=== PATIENT | male | born 1990 | race Caucasian/White ===

== ENCOUNTER 2018-11-08 18:42 | Emergency (ER) | payer BC ==
--- NOTE | 2018-11-08 18:54 | EDM.PDOC ---
ED HPI GENERAL MEDICAL PROBLEM - General Chief Complaint: Genitourinary Problem Stated Complaint: LOWER ABD AND BACK PAIN Time Seen by Provider: 11/08/18 18:54 Source of Information: Reports: Patient History Limitations: Reports: No Limitations - History of Present Illness INITIAL COMMENTS - FREE TEXT/NARRATIVE: HISTORY AND PHYSICAL: History of present illness: Patient is a 27-year-old male presents to the ED with complaint of dysuria. He states it started 1 week ago after he had intercourse. He went to walk in clinic and was tested for STDs, he was called with the results 2 days later and states it was negative. He reports since then he is having pain in his lower abdomen and feeling nausea. He reports have 1 episode of vomiting. Denies fevers or chills. He states he has a warm sensation in to his left testicle but is not painful or swollen. Review of systems: As per history of present illness and below otherwise all systems reviewed and negative. Past medical history: As per history of present illness and as reviewed below otherwise noncontributory. Surgical history: As per history of present illness and as reviewed below otherwise noncontributory. Social history: No reported history of drug or alcohol abuse. Family history: As per history of present illness and as reviewed below otherwise noncontributory. Physical exam: General: Patient sitting comfortably in no acute distress and nontoxic appearing HEENT: Atraumatic, normocephalic, pupils reactive, negative for conjunctival pallor or scleral icterus, mucous membranes moist, throat clear, neck supple, nontender, trachea midline. No meningeal signs. Lungs: Clear to auscultation, breath sounds equal bilaterally, chest nontender. Heart: S1S2, regular, negative for clicks, rubs, or overt murmur. Abdomen: Soft, nondistended, nontender. Negative for masses or hepatosplenomegaly. Negative for costovertebral tenderness. No rigidity, rebound , guarding. Pelvis: Stable nontender. Genitourinary: No testicular swelling or tenderness to palpation. No penile lesions or drainage. Normal cremasteric reflex Rectal: Deferred. Extremities: Atraumatic, negative for cords or calf pain. Neurovascular unremarkable. Neuro: Awake, alert, oriented. Cranial nerves II through XII unremarkable. Cerebellum unremarkable. Motor and sensory unremarkable throughout. Exam nonfocal. Notes: Diagnostics: CBC, CMP, UA, urine gonorrhea/chlamydia Therapeutics: 250mg Rocephin IM Azithromycin 1g PO Prescriptions: Impression: Concern for STD, dysuria Plan: Infection precautions as discussed Follow up with urology if symptoms not improved as discussed Return to ED As needed as discussed Definitive disposition and diagnosis as appropriate pending reevaluation and review of above. left testicle Pain Score (Numeric/FACES): 8 - Related Data Allergies Allergy/AdvReac Type Severity Reaction Status Date / Time No Known Allergies Allergy Verified 11/08/18 18:51 Home Meds: Home Meds LORazepam 0.5 mg PO DAILY PRN 11/08/18 [History] Past Medical History HEENT History: Reports: None Cardiovascular History: Reports: None Gastrointestinal History: Reports: None - Past Surgical History Endocrine Surgical History: Reports: Other (See Below) Musculoskeletal Surgical History: Reports: Other (See Below) Social & Family History - Family History GI: Reports: None ED ROS GENERAL - Review of Systems Review Of Systems: ROS reveals no pertinent complaints other than HPI. ED EXAM, RENAL/ - Physical Exam Exam: See Below (see dictation.) Course - Vital Signs Last Recorded V/S: Last Vital Signs Temp 97.5 F 11/08/18 18:46 Pulse 69 11/08/18 18:46 Resp 17 11/08/18 18:46 BP 130/76 11/08/18 18:46 Pulse Ox 98 11/08/18 18:46 - Orders/Labs/Meds Orders: Active Orders 24 hr Category Date Time Status CHLAMYDIA AND GONORRHEA BY TMA Stat Lab 11/08/18 18:56 Received Labs: Laboratory Tests 11/08/18 11/08/18 11/08/18 Range/Units 18:56 19:50 19:50 WBC 6.46 (4.0-11.0) K/uL RBC 5.21 (4.50-5.90) M/uL Hgb 14.2 (13.0-17.0) g/dL Hct 43.0 (38.0-50.0) % MCV 82.5 (80.0-98.0) fL MCH 27.3 (27.0-32.0) pg MCHC 33.0 (31.0-37.0) g/dL RDW Std Deviation 40.7 (28.0-62.0) fl RDW Coeff of Kecia 13 (11.0-15.0) % Plt Count 177 (150-400) K/uL MPV 9.10 (7.40-12.00) fL Neut % (Auto) 55.6 (48.0-80.0) % Lymph % (Auto) 26.9 (16.0-40.0) % [place] % (Auto) 8.7 (0.0-15.0) % Eos % (Auto) 8.5 H (0.0-7.0) % Baso % (Auto) 0.3 (0.0-1.5) % Neut # (Auto) 3.6 (1.4-5.7) K/uL Lymph # (Auto) 1.7 (0.6-2.4) K/uL [place] # (Auto) 0.6 (0.0-0.8) K/uL Eos # (Auto) 0.6 (0.0-0.7) K/uL Baso # (Auto) 0.0 (0.0-0.1) K/uL Nucleated RBC % 0.0 /100WBC Nucleated RBCs # 0 K/uL Sodium 139 (136-148) mmol/L Potassium 4.0 (3.5-5.1) mmol/L Chloride 104 (98-107) mmol/L Carbon Dioxide 25.1 (21.0-32.0) mmol/L BUN 20 H (7.0-18.0) mg/dL Creatinine 1.2 (0.8-1.3) mg/dL Est Cr Clr Drug Dosing 108.56 mL/min Estimated GFR (MDRD) > 60.0 ml/min Glucose 92 (74-106) mg/dL Calcium 9.6 (8.5-10.1) mg/dL Total Bilirubin 0.5 (0.2-1.0) mg/dL AST 25 (15-37) IU/L ALT 52 (14-63) IU/L Alkaline Phosphatase 56 (46-116) U/L Total Protein 7.0 (6.4-8.2) g/dL Albumin 4.0 (3.4-5.0) g/dL Globulin 3.0 (2.6-4.0) g/dL Albumin/Globulin Ratio 1.3 (0.9-1.6) Urine Color YELLOW Urine Appearance CLEAR Urine pH 6.0 (5.0-8.0) Ur Specific [place] <= 1.005 (1.001-1.035) Urine Protein NEGATIVE (NEGATIVE) mg/dL Urine Glucose (UA) NEGATIVE (NEGATIVE) mg/dL Urine Ketones NEGATIVE (NEGATIVE) mg/dL Urine Occult Blood NEGATIVE (NEGATIVE) Urine Nitrite NEGATIVE (NEGATIVE) Urine Bilirubin NEGATIVE (NEGATIVE) Urine Urobilinogen 0.2 (<2.0) EU/dL Ur Leukocyte Esterase NEGATIVE (NEGATIVE) Departure - Departure Time of Disposition: 20:17 Disposition: Home, Self-Care 01 Condition: Good Clinical Impression: Concern about STD in male without diagnosis, Dysuria - Discharge Information Referrals: PCP,None [Primary Care Provider] - Forms: ED Department Discharge Additional Instructions: The following information is given to patients seen in the emergency department who are being discharged to home. This information is to outline your options for follow-up care. We provide all patients seen in our emergency department with a follow-up referral. The need for follow-up, as well as the timing and circumstances, are variable depending upon the specifics of your emergency department visit. If you don't have a primary care physician on staff, we will provide you with a referral. We always advise you to contact your personal physician following an emergency department visit to inform them of the circumstance of the visit and for follow-up with them and/or the need for any referrals to a consulting specialist. The emergency department will also refer you to a specialist when appropriate. This referral assures that you have the opportunity for follow-up care with a specialist. All of these measure are taken in an effort to provide you with optimal care, which includes your follow-up. Under all circumstances we always encourage you to contact your private physician who remains a resource for coordinating your care. When calling for follow-up care, please make the office aware that this follow-up is from your recent emergency room visit. If for any reason you are refused follow-up, please contact the [facility] Emergency Department at and asked to speak to the emergency department charge nurse. [facility] [address] [place] [id number] [facility] [address] [place] [id number] [facility] - Urology [address] [place] [address] Infection precautions as discussed Follow up with urology if symptoms not improved as discussed Return to ED As needed as discussed - My Orders Last 24 Hours: My Active Orders 11/08/18 18:56 CHLAMYDIA AND GONORRHEA BY TMA Stat - Assessment/Plan Last 24 Hours: My Active Orders 11/08/18 18:56 CHLAMYDIA AND GONORRHEA BY TMA Stat
[2018-11-08 20:11] LABS: BLOOD UREA NITROGEN,BUN 20 mg/dL (7.0-18.0); CARBON DIOXIDE,CO2 25.1 mmol/L (21.0-32.0); CHLORIDE,CL 104 mmol/L (98-107); GLUCOSE RANDOM 92 mg/dL (74-106); SODIUM,NA 139 mmol/L (136-148)
[2018-11-08] MEDS ORDERED: Azithromycin 250 MG Tab PO STA (20:17)
[2018-11-08] MEDS ORDERED: cefTRIAXone 250 MG in Lidocaine 1% 1 ML IM ONE (20:17)
[2018-11-08 20:37] VITALS: BP 118/74; PULSE 60
== END 2018-11-08 20:38 | disposition home or self-care (01) ==
LOC: MW.ED 18:42
DX: R30.0 Dysuria (principal)
CPT/HCPCS: 36415; 80053; 81003; 85025; 87491; 87591; 96372; 99284; A9270; J0696; J2001; 99283